=== PATIENT | male | born 1990 | race Caucasian/White ===

== ENCOUNTER 2017-08-20 14:27 | Emergency (ER) | payer OTHER ==
--- NOTE | 2017-08-20 15:37 | EDM.PDOC ---
ED HPI GENERAL MEDICAL PROBLEM - General Chief Complaint: Back Pain or Injury Stated Complaint: LOWER BACK PAIN Time Seen by Provider: 08/20/17 15:20 Source of Information: Reports: Patient History Limitations: Reports: No Limitations - History of Present Illness INITIAL COMMENTS - FREE TEXT/NARRATIVE: HISTORY AND PHYSICAL: History of present illness: 26-year-old male presenting to the emergency department with chief complaint of lower back pain 6 days. Patient states that on Tuesday of last week approximately 6 days ago he was doing full squats when at the very bottom of his squat position he felt and heard a loud pop which was associated with sudden sharp pain in his lower back that radiated initially to his lower legs bilaterally. Since that time he has had continued sharp pain but denies any radiation into the lower extremities. Is mostly located at the L3-L5 position. Denies any decreased strength, range of motion, or sensation. He has been taking ibuprofen [id number] and has been working since then but secondary to continued pain and severity of the initial injury came to the emergency department for further evaluation. Patient has no allergies and takes no regular medications. He denies any previous history of back injury. He denies any bowel or bladder incontinence. Currently denies any chest pain, palpitations, shortness breath, syncopal episodes, focal neurologic episodes. Review of systems: As per history of present illness and below otherwise all systems reviewed and negative. Past medical history: As per history of present illness and as reviewed below otherwise noncontributory. Surgical history: As per history of present illness and as reviewed below otherwise noncontributory. Social history: No reported history of drug or alcohol abuse. Family history: As per history of present illness and as reviewed below otherwise noncontributory. Physical exam: HEENT: Atraumatic, normocephalic, pupils reactive, negative for conjunctival pallor or scleral icterus, mucous membranes moist, throat clear, neck supple, nontender, trachea midline. Lungs: Clear to auscultation, breath sounds equal bilaterally, chest nontender. Heart: S1S2, regular, negative for clicks, rubs, or JVD. Abdomen: Soft, nondistended, nontender. Negative for masses or hepatosplenomegaly. Negative for costovertebral tenderness. Pelvis: Stable nontender. Genitourinary: Deferred. Rectal: Deferred. Extremities: Atraumatic, negative for cords or calf pain. Neurovascular unremarkable. Neuro: Awake, alert, oriented. Cranial nerves II through XII unremarkable. Cerebellum unremarkable. Motor and sensory unremarkable throughout. Exam nonfocal. Back: No step-offs. Tender to palpation from L3-L5 along vertebral spine. There is some minor paravertebral muscle spasms as well. No decrease in sensation or radiation pain, loss of strength bilaterally. Diagnostics: Lumbar x-ray Therapeutics: Cyclobenzaprine Impression: Acute lumbar back pain Lumbar back muscle spasm Suspected disc herniation L5-S1 Plan: Lumbar films revealed marked narrowing of the L5 interspace as well as minimal degenerative and hypertrophic changes in the lumbar spine. There is some mild posterior subluxation of L4 and L5. Patient was made aware of these findings. Currently he only has pain localized from L3-L5 without significant radiation. He has no radiculopathy, loss of sensation, or range of motion. Forward bending does cause some pain. Gave the patient a prescription for Flexeril for his muscle spasms 10 mg by mouth 3 times a day 7 days and gave him information to follow-up with the primary care provider next week for possible physical therapy if warranted. He should refrain from heavy lifting and cont. stretching exercises. Patient can continue to use ibuprofen maximum dose 3000 mg daily as well as Tylenol maximum dose 4000 mg daily for pain and inflammation. Patient was discharged in good condition with instruction to return to emergency department if he had a new or worsening symptoms. Lower Back Pain Score (Numeric/FACES): 9 - Related Data Allergies Allergy/AdvReac Type Severity Reaction Status Date / Time No Known Allergies Allergy Verified 08/20/17 15:17 Home Meds: Home Meds . [No Known Home Meds] 08/04/14 [History] Past Medical History Cardiovascular History: Reports: None Respiratory History: Reports: None Gastrointestinal History: Reports: None Neurological History: Reports: None Psychiatric History: Reports: None Endocrine/Metabolic History: Reports: None Hematologic History: Reports: None Oncologic (Cancer) History: Reports: None Dermatologic History: Reports: None - Infectious Disease History Infectious Disease History: Reports: None - Past Surgical History Other HEENT Surgeries/Procedures: deviated septum repair Male Surgical History: Reports: Other (See Below) Musculoskeletal Surgical History: Reports: Shoulder Surgery Social & Family History - Family History Family Medical History: Noncontributory - Tobacco Use Smoking Status *Q: Current Every Day Smoker Years of Tobacco use: 8 Packs/Tins Daily: 1 - Caffeine Use Caffeine Use: Reports: Coffee, Energy Drinks - Recreational Drug Use Recreational Drug Use: No ED ROS GENERAL - Review of Systems Review Of Systems: See Below ED EXAM, GENERAL - Physical Exam Exam: See Below Course - Vital Signs Last Recorded V/S: Last Vital Signs Temp 97.5 F 08/20/17 15:13 Pulse 60 08/20/17 15:13 Resp 18 08/20/17 15:13 BP 130/70 08/20/17 15:13 Pulse Ox 98 08/20/17 15:13 - Orders/Labs/Meds Orders: Active Orders 24 hr Category Date Time Status Lumbar Spine 2 or 3V [CR] Stat Exams 08/20/17 15:30 Taken Departure - Departure Time of Disposition: 16:23 Disposition: Home, Self-Care 01 Condition: Good Clinical Impression: Back pain due to injury - Discharge Information Referrals: PCP,None [Primary Care Provider] - Forms: ED Department Discharge Additional Instructions: My general discharge The following information is given to patients seen in the emergency department who are being discharged to home. This information is to outline your options for follow-up care. We provide all patients seen in our emergency department with a follow-up referral. The need for follow-up, as well as the timing and circumstances, are variable depending upon the specifics of your emergency department visit. If you don't have a primary care physician on staff, we will provide you with a referral. We always advise you to contact your personal physician following an emergency department visit to inform them of the circumstance of the visit and for follow-up with them and/or the need for any referrals to a consulting specialist. The emergency department will also refer you to a specialist when appropriate. This referral assures that you have the opportunity for follow-up care with a specialist. All of these measure are taken in an effort to provide you with optimal care, which includes your follow-up. Under all circumstances we always encourage you to contact your private physician who remains a resource for coordinating your care. When calling for follow-up care, please make the office aware that this follow-up is from your recent emergency room visit. If for any reason you are refused follow-up, please contact the [facility] Emergency Department at and asked to speak to the emergency department charge nurse. [facility] [address] [place] [address] [facility] [address] [place] [id number] - My Orders Last 24 Hours: My Active Orders 08/20/17 15:30 Lumbar Spine 2 or 3V [CR] Stat - Assessment/Plan Last 24 Hours: My Active Orders 08/20/17 15:30 Lumbar Spine 2 or 3V [CR] Stat
[2017-08-20 16:49] VITALS: BP 133/70
--- NOTE | 2017-08-22 11:30 | CR ---
EXAM DATE: 08/20/17 PATIENT'S AGE: 26 Patient: PARRISH GARCIA Facility: [place], [place] Site . Site : 1990 Study: XRay Spine Lumbar [id number] 3:59:52 PM Ordering Physician: Jordan Rosen Final Report: INDICATION: Pain from working out since Tuesday. TECHNIQUE: Three views lumbar spine. FINDINGS: Marked narrowing of the L5 interspace. Minimal degenerative and hypertrophic changes in the lumbar spine. Minimal posterior subluxation of L4 on L5. No other subluxation in lumbar spine. No fracture in lumbar spine. Remainder negative. Dictated by Nicho Fish MD @ Aug 20 2017 4:03PM (Electronic Signature) Report Signed by Proxy. MARY
== END 2017-08-20 16:47 | disposition home or self-care (01) ==
LOC: MW.ED 14:27
DX: M62.830 Muscle spasm of back (principal); F17.210 Nicotine dependence, cigarettes, uncomplicated; X50.3XXA Overexertion from repetitive movements, initial encounter
CPT/HCPCS: 72100; 72100-26; 99283

== ENCOUNTER 2017-12-03 14:37 | Emergency (ER) | payer OTHER ==
[2017-12-03 14:56] VITALS: BP 148/83
[2017-12-03] MEDS ORDERED: Diphtheria,Pertussis(Acell),Tetanus Vaccine 0.5 ML Syringe IM ONE (14:56)
--- NOTE | 2017-12-03 14:59 | EDM.PDOC ---
ED HPI GENERAL MEDICAL PROBLEM - General Chief Complaint: Laceration Stated Complaint: RT FOOT HURTS Time Seen by Provider: 12/03/17 14:50 - History of Present Illness INITIAL COMMENTS - FREE TEXT/NARRATIVE: HISTORY AND PHYSICAL: History of present illness: Patient 26-year-old white male presents with concern of injury to his right ankle. Patient states he sustained a small laceration from an exhaust pipe. He denies up-to-date tetanus Review of systems: As per history of present illness and below otherwise all systems reviewed and negative. Past medical history: As per history of present illness and as reviewed below otherwise noncontributory. Surgical history: As per history of present illness and as reviewed below otherwise noncontributory. Social history: No reported history of drug or alcohol abuse. Family history: As per history of present illness and as reviewed below otherwise noncontributory. Physical exam: HEENT: Atraumatic, normocephalic, pupils reactive, negative for conjunctival pallor or scleral icterus, mucous membranes moist, throat clear, neck supple, nontender, trachea midline. Lungs: Clear to auscultation, breath sounds equal bilaterally, chest nontender. Heart: S1S2, regular, negative for clicks, rubs, or JVD. Abdomen: Soft, nondistended, nontender. Negative for masses or hepatosplenomegaly. Negative for costovertebral tenderness. Pelvis: Stable nontender. Genitourinary: Deferred. Rectal: Deferred. Extremities: Patient has approximately 1 cm moderate depth laceration to the medial aspect of his right ankle is good hemostasis no bony involvement CMS neurovascular exam are unremarkable Neuro: Awake, alert, oriented. Cranial nerves II through XII unremarkable. Cerebellum unremarkable. Motor and sensory unremarkable throughout. Exam nonfocal. Diagnostics: None Therapeutics: #1 wound was irrigated closed with Steri-Strips and bacitracin dressing applied tetanus was updated Impression: # 1 right ankle injury (laceration) Definitive disposition and diagnosis as appropriate pending reevaluation and review of above. right ankle Pain Score (Numeric/FACES): 9 - Related Data Allergies Allergy/AdvReac Type Severity Reaction Status Date / Time No Known Allergies Allergy Verified 08/20/17 15:17 Home Meds: Home Meds . [No Known Home Meds] 08/04/14 [History] Past Medical History Cardiovascular History: Reports: None Respiratory History: Reports: None Gastrointestinal History: Reports: None Neurological History: Reports: None Psychiatric History: Reports: None Endocrine/Metabolic History: Reports: None Hematologic History: Reports: None Oncologic (Cancer) History: Reports: None Dermatologic History: Reports: None - Infectious Disease History Infectious Disease History: Reports: None - Past Surgical History Other HEENT Surgeries/Procedures: deviated septum repair Male Surgical History: Reports: Other (See Below) Musculoskeletal Surgical History: Reports: Shoulder Surgery Social & Family History - Family History Family Medical History: Noncontributory - Caffeine Use Caffeine Use: Reports: Coffee, Energy Drinks ED ROS GENERAL - Review of Systems Review Of Systems: ROS reveals no pertinent complaints other than HPI. ED EXAM, GENERAL - Physical Exam Exam: See Below (See dictation) Course - Vital Signs Text/Narrative:: Patient declines sutures does agree a Steri-Strip closure Last Recorded V/S: Last Vital Signs Temp 36.2 C 12/03/17 14:53 Pulse 78 12/03/17 14:53 Resp 18 12/03/17 14:53 BP 148/83 H 12/03/17 14:53 Pulse Ox 98 12/03/17 14:53 - Orders/Labs/Meds Orders: Active Orders 24 hr Category Date Time Status Vaccines to be Administered [RC] PER UNIT ROUTINE Care 12/03/17 14:56 Ordered Diphth,Pertuss(Acell),Tet Vac [Adacel] Med 12/03/17 14:56 Once 0.5 ml IM .ONCE ONE Departure - Departure Time of Disposition: 14:58 Disposition: Home, Self-Care 01 Condition: Good Clinical Impression: Laceration - Discharge Information *PRESCRIPTION DRUG MONITORING PROGRAM REVIEWED*: Not Applicable *COPY OF PRESCRIPTION DRUG MONITORING REPORT IN PATIENT KRYSTAL: Not Applicable Referrals: PCP,None [Primary Care Provider] - Forms: ED Department Discharge Additional Instructions: The following information is given to patients seen in the emergency department who are being discharged to home. This information is to outline your options for follow-up care. We provide all patients seen in our emergency department with a follow-up referral. The need for follow-up, as well as the timing and circumstances, are variable depending upon the specifics of your emergency department visit. If you don't have a primary care physician on staff, we will provide you with a referral. We always advise you to contact your personal physician following an emergency department visit to inform them of the circumstance of the visit and for follow-up with them and/or the need for any referrals to a consulting specialist. The emergency department will also refer you to a specialist when appropriate. This referral assures that you have the opportunity for followup care with a specialist. All of these measure are taken in an effort to provide you with optimal care, which includes your followup. Under all circumstances we always encourage you to contact your private physician who remains a resource for coordinating your care. When calling for followup care, please make the office aware that this follow-up is from your recent emergency room visit. If for any reason you are refused follow-up, please contact the [facility] emergency department at and asked to speak to the emergency department charge nurse. Wound care is discussed Motrin/Tylenol instructed follow-up private medical doctor as needed as discussed and return as needed as discussed - My Orders Last 24 Hours: My Active Orders 12/03/17 14:56 Vaccines to be Administered [RC] PER UNIT ROUTINE Diphth,Pertuss(Acell),Tet Vac [Adacel] 0.5 ml IM .ONCE ONE - Assessment/Plan Last 24 Hours: My Active Orders 12/03/17 14:56 Vaccines to be Administered [RC] PER UNIT ROUTINE Diphth,Pertuss(Acell),Tet Vac [Adacel] 0.5 ml IM .ONCE ONE
[2017-12-03] MEDS ORDERED: Diphtheria,Pertussis(Acell),Tetanus Vaccine 0.5 ML Syringe ONE (15:01)
== END 2017-12-03 15:21 | disposition home or self-care (01) ==
LOC: MW.ED 14:37
DX: S91.011A Laceration without foreign body, right ankle, initial encounter (principal); W26.8XXA Contact with other sharp object(s), not elsewhere classified, initial encounter; Z23 Encounter for immunization
CPT/HCPCS: 90471; 90715; 99282-25